=== PATIENT | male | born 1955 | race Caucasian/White ===

== ENCOUNTER 2017-04-26 10:26 | Observation (INO) | payer BC ==
[~2017-04-26] VITALS: Ht 172.7 cm; Wt 100.0 kg
[2017-04-26 11:13] LABS: HEMATOCRIT 42.5 % (38.0-50.0); HEMOGLOBIN 15.2 G/DL (12.5-16.6); MCH 31.6 PG (29.0-34.0); MCHC 35.8 G/DL (30.0-36.0); MCV 88.4 FL (86-99); PLATELET COUNT 180 K/uL (156-360); RBC DIS.WIDTH-CV 11.8 % (11.8-14.6); RBC DIS.WIDTH-SD 38.2 % (39-53); RED BLOOD COUNT 4.81 M/uL (4.00-5.50); WHITE BLOOD COUNT 5.6 K/uL (4.1-10.2)
[2017-04-26 11:22] LABS: CHLORIDE 110 mEq/L (99-109); POTASSIUM 4.2 mEq/L (3.7-5.4); SODIUM 142 mEq/L (136-147)
[2017-04-26 11:24] LABS: GLUCOSE 111 mg/dL (70-99)
[2017-04-26 11:27] LABS: CREATININE 0.8 mg/dL (0.6-1.3); GFR ESTIMATE (CALCULATED) > 59 mL/min/ (58.99-99999)
[2017-04-26 11:28] LABS: UREA NITROGEN (BUN) 13 mg/dL (9-23)
[2017-04-26 11:33] LABS: TROP-I INTERPRETATION NEGATIVE; TROPONIN-I 0.01 ng/mL (0.0-0.30)
[2017-04-26 16:30] LABS: TROP-I INTERPRETATION NEGATIVE; TROPONIN-I < 0.01 ng/mL (0.0-0.30)
[2017-04-26] MEDS ORDERED: SYNTHROID100 MCG PO (16:55)
[2017-04-26] MEDS ORDERED: PROVIGIL200 MG PO (16:55)
[2017-04-26] MEDS ORDERED: PROTONIX40 MG PO (16:56)
[2017-04-26] MEDS ORDERED: LIPITOR40 MG PO (16:56)
[2017-04-26] MEDS ORDERED: CIALIS5 MG PO (16:56)
[2017-04-26] MEDS ORDERED: OMEGA 3-6-9 CO400 MG PO (16:57)
[2017-04-26] MEDS ORDERED: TOPROL XL25 MG PO (16:57)
[2017-04-26] MEDS ORDERED: OSTEO BI-FLEX1 EAC1 PO (16:58)
[2017-04-26] MEDS ORDERED: MEN'S MULTI-VI1 EACH PO (17:00)
[2017-04-26] MEDS ORDERED: ALLEGRA ALLERG180 MG PO (17:01)
[2017-04-26] MEDS ORDERED: ASPIR 8181 M1 PO (17:01)
[2017-04-26 20:28] VITALS: BP 136/80
[2017-04-26 22:06] LABS: TROP-I INTERPRETATION NEGATIVE; TROPONIN-I < 0.01 ng/mL (0.0-0.30)
[2017-04-27 00:18] VITALS: BP 139/76
[2017-04-27 04:52] VITALS: BP 116/74
[2017-04-27 08:36] VITALS: BP 126/79
[2017-04-27 12:01] VITALS: BP 113/88
== END 2017-04-27 13:15 | disposition home or self-care (01) ==
LOC: EME 10:26 → EDOF 15:34 → ENRESERV 15:36 → 5WEST 20:16 → ENPENDDIS 04-27 → 5WEST 04-27 13:15
PROVIDERS: Emergency Medicine; Internal Medicine
DX: R07.89 Other chest pain (principal); R09.02 Hypoxemia; I25.10 Atherosclerotic heart disease of native coronary artery without angina pectoris; I25.2 Old myocardial infarction; Z95.5 Presence of coronary angioplasty implant and graft; E78.5 Hyperlipidemia, unspecified; E03.9 Hypothyroidism, unspecified; Z87.891 Personal history of nicotine dependence; Z82.49 Family history of ischemic heart disease and other diseases of the circulatory system
CPT/HCPCS: 71046; 71275; 80048; 84484; 85027; 85379; 93005; 99281; 99285; G0378; J7030